=== PATIENT | female | born 1965 | race African-American/Black ===

== ENCOUNTER 2017-04-24 12:38 | Emergency (ER) | payer MEDICAID, MEDICARE ==
[~2017-04-24] VITALS: Ht 157.5 cm; Wt 73.0 kg
[~2017-04-24 12:38] MED LIST: ASPI-1160 PO; FERR325T23 PO; GLIP5TAB12 PO; METF-416 PO; OMEP20CA4 PO; SIMV10TA2 PO; TRAM50TA3 PO; ZOLP6.252 PO
[2017-04-24] MEDS ORDERED: SODIUM CHLORIDE 0.9% 1,000 ML IV ONE ×3 (12:52→18:06)
[2017-04-24] MEDS ORDERED: ASPIRIN 81MG TABLET PO ONE (13:00)
[2017-04-24 13:32] LABS: BASOPHILS % 0.7 % (0.0-2.0); EOSINOPHILS % 2.1 % (0.0-5.0); HEMATOCRIT. 40.3 % (36.0-48.0); HEMOGLOBIN. 12.5 g/dL (12.0-16.0); MEAN CORPUSCULAR HEMOGLOBIN 22.5 pg (28.0-32.0); MEAN CORPUSCULAR VOLUME 72.5 fL (81.0-99.0); MEAN PLATELET VOLUME 9.7 fl (7.4-10.4); MONOCYTES % 6.9 % (2.0-8.0); NEUTROPHILS % 70.3 % (40.0-76.0); PLATELET 273 x1000/uL (130-400); RED BLOOD CELL COUNT 5.55 mill/uL (4.2-5.4); RED CELL DISTRIBUTION WIDTH 14.6 % (11.6-14.6)
[2017-04-24 13:37] LABS: PARTIAL THROMBOPLASTIN TIME 26.5 sec (23.4-31.0); PROTHROMBIN TIME 10.5 sec (9.4-11.6)
[2017-04-24 14:33] LABS: CHLORIDE 96 mEq/L (98-107)
[2017-04-24 15:16] LABS: CLARITY URINE CLEAR (CLEAR); COLOR URINE YELLOW (YELLOW); KETONES URINE NEGATIVE (NEGATIVE); LEUKOCYTE ESTERASE URINE NEGATIVE (NEGATIVE); NITRITE URINE NEGATIVE (NEGATIVE); OCCULT BLOOD URINE NEGATIVE (NEGATIVE); PROTEIN URINE NEGATIVE (NEGATIVE); SPECIFIC GRAVITY URINE 1.035 (1.005-1.030); UROBILINOGEN URINE 0.2 E.U./dL (0.2-1.0)
[2017-04-24 15:33] LABS: *AMPHETAMINES SCREEN URINE NEGATIVE (NEGATIVE); *BARBITURATES SCREEN URINE NEGATIVE (NEGATIVE); *BENZODIAZEPINES SCREEN URINE NEGATIVE (NEGATIVE); *COCAINE SCREEN URINE NEGATIVE (NEGATIVE); CANNABINOID URINE SCREEN NEGATIVE (NEGATIVE); METHADONE URINE SCREEN NEGATIVE (NEGATIVE); OPIATES URINE SCREEN NEGATIVE (NEGATIVE); PHENCYCLIDINE URINE SCREEN NEGATIVE (NEGATIVE)
[2017-04-24 15:50] LABS: EOSINOPHILS % 2.5 % (0.0-5.0); HEMATOCRIT. 39.1 % (36.0-48.0); HEMOGLOBIN. 12.3 g/dL (12.0-16.0); LYMPHOCYTES % 28.7 % (20.0-50.0); MEAN CORPUSCULAR HEMOGLOBIN 22.4 pg (28.0-32.0); MEAN CORPUSCULAR VOLUME 71.1 fL (81.0-99.0); MEAN PLATELET VOLUME 9.5 fl (7.4-10.4); MONOCYTES % 7.1 % (2.0-8.0); NEUTROPHILS % 60.7 % (40.0-76.0); PLATELET 266 x1000/uL (130-400); RED CELL DISTRIBUTION WIDTH 14.3 % (11.6-14.6)
[2017-04-24 16:06] LABS: CHLORIDE 98 mEq/L (98-107)
[2017-04-24] MEDS ORDERED: INSULIN REGULAR (HUMULIN R) UD 100 UNITS/ML SYR IV ONE (18:15)
[2017-04-24] MEDS ORDERED: INSULIN REGULAR (HUMULIN R) 300UNITS/3ML IV SCH (18:21)
[2017-04-24 21:30] VITALS: BP 118/72
== END 2017-04-24 22:30 | disposition home or self-care (01) ==
LOC: ER 12:38
DX: B34.9 Viral infection, unspecified (principal); I10 Essential (primary) hypertension; E11.65 Type 2 diabetes mellitus with hyperglycemia; Z79.4 Long term (current) use of insulin; Z79.82 Long term (current) use of aspirin; Z98.890 Other specified postprocedural states
CPT/HCPCS: 36415; 71045; 80053; 80305; 81001; 82010; 82962; 83880; 84484; 85025; 85610; 85730; 87804; 93005; 96361; 96374; 99285; J1815; J7030

== ENCOUNTER 2018-03-18 16:45 | Emergency (ER) | payer MEDICARE ==
[~2018-03-18] VITALS: Ht 157.5 cm; Wt 72.0 kg
[2018-03-18] MEDS ORDERED: ASPIRIN 81MG TABLET PO ONE (18:30)
[2018-03-18] MEDS ORDERED: NITROGLYCERIN 0.4MG TABLET SL SL PRN (18:30)
[2018-03-18 18:45] LABS: BASOPHILS % 0.6 % (0.0-2.0); EOSINOPHILS % 4.5 % (0.0-5.0); HEMATOCRIT. 39.7 % (36.0-48.0); HEMOGLOBIN. 12.5 g/dL (12.0-16.0); LYMPHOCYTES % 32.2 % (20.0-50.0); MEAN CORPUSCULAR HEMOGLOBIN 22.7 pg (28.0-32.0); MONOCYTES % 6.9 % (2.0-8.0); NEUTROPHILS % 55.8 % (40.0-76.0); PLATELET 278 x1000/uL (130-400); RED BLOOD CELL COUNT 5.51 mill/uL (4.2-5.4); RED CELL DISTRIBUTION WIDTH 14.4 % (11.6-14.6)
[2018-03-18 18:51] LABS: CHLORIDE 103 mEq/L (98-107)
[2018-03-18 19:07] LABS: PARTIAL THROMBOPLASTIN TIME 27.2 sec (23.4-31.0); PROTHROMBIN TIME 9.7 sec (9.1-11.1)
[2018-03-18] MEDS ORDERED: KETOROLAC 30MG/ML VIAL IV ONE (22:45)
[2018-03-19 02:23] VITALS: BP 133/90
== END 2018-03-19 02:28 | disposition home or self-care (01) ==
LOC: ER 16:45
DX: R07.89 Other chest pain (principal); M79.672 Pain in left foot
CPT/HCPCS: 36415; 71045; 73630; 80053; 82962; 83880; 84484; 85025; 85610; 85730; 93005; 93970; 96374; 99284; J1885

== ENCOUNTER 2020-11-12 20:33 | Emergency (ER) | payer MEDICAID, OTHER ==
[~2020-11-12] VITALS: Ht 157.5 cm; Wt 64.0 kg
[~2020-11-12 20:33] MED LIST changes: +GABA-532 PO; +HYDR-4001 MT; +LANTUSUD SUBCUT; +LIP40 MT; +NORCO PO
[2020-11-12] MEDS ORDERED: KETOROLAC 30MG/ML VIAL IV ONE (23:15)
[2020-11-12 23:48] LABS: *AMPHETAMINES SCREEN URINE NEGATIVE (NEGATIVE); *BARBITURATES SCREEN URINE NEGATIVE (NEGATIVE); *BENZODIAZEPINES SCREEN URINE NEGATIVE (NEGATIVE); *COCAINE SCREEN URINE NEGATIVE (NEGATIVE)
[2020-11-12 23:48] LABS: BASOPHILS % 0.8 % (0.0-2.0); EOSINOPHILS % 1.7 % (0.0-5.0); HEMATOCRIT. 40.8 % (36.0-48.0); HEMOGLOBIN. 13.1 g/dL (12.0-16.0); LYMPHOCYTES % 36.8 % (20.0-50.0); MEAN CORPUSCULAR VOLUME 71.8 fL (81.0-99.0); MONOCYTES % 7.1 % (2.0-8.0); NEUTROPHILS % 53.6 % (40.0-76.0); PLATELET 278 x1000/uL (130-400); RED BLOOD CELL COUNT 5.69 mill/uL (4.2-5.4); RED CELL DISTRIBUTION WIDTH 13.4 % (11.6-14.6)
[2020-11-12 23:49] LABS: CANNABINOID URINE SCREEN NEGATIVE (NEGATIVE); METHADONE URINE SCREEN NEGATIVE (NEGATIVE); OPIATES URINE SCREEN NEGATIVE (NEGATIVE); PHENCYCLIDINE URINE SCREEN NEGATIVE (NEGATIVE)
[2020-11-12 23:55] LABS: CHLORIDE 100 mEq/L (98-107)
[2020-11-12 23:59] LABS: ETHANOL BLOOD < 10 mg/dL
[2020-11-13] MEDS ORDERED: INSULIN REGULAR (HUMULIN R) 300UNITS/3ML VIAL SUBCUT ONE (00:45)
[2020-11-13 03:10] VITALS: BP 140/82
== END 2020-11-13 03:22 | disposition home or self-care (01) ==
LOC: ER 21:09
DX: E11.40 Type 2 diabetes mellitus with diabetic neuropathy, unspecified (principal); E11.65 Type 2 diabetes mellitus with hyperglycemia; D64.9 Anemia, unspecified; Z98.890 Other specified postprocedural states; Z79.82 Long term (current) use of aspirin; Z79.899 Other long term (current) drug therapy
CPT/HCPCS: 36415; 71045; 80053; 80305; 80320; 82962; 83880; 84484; 85025; 93970; 96372; 96374; 99285; J1815; J1885; G0480

== ENCOUNTER 2022-02-13 14:06 | Inpatient (IN) | payer MEDICARE, MEDICAID ==
[~2022-02-13] VITALS: Ht 157.5 cm; Wt 67.1 kg
[~2022-02-13 14:06] MED LIST changes: +SIMV-341 PO; -SIMV10TA2 PO
[2022-02-13] MEDS ORDERED: IBUPROFEN 400MG TABLET PO ONE (20:45)
[2022-02-13 20:55] LABS: BASOPHILS % 1.2 % (0.0-2.0); EOSINOPHILS % 4.9 % (0.0-5.0); HEMATOCRIT. 39.6 % (36.0-48.0); HEMOGLOBIN. 12.5 g/dL (12.0-16.0); LYMPHOCYTES % 34.4 % (20.0-50.0); MEAN CORPUSCULAR VOLUME 72.6 fL (81.0-99.0); MEAN PLATELET VOLUME 8.7 fl (7.4-10.4); MONOCYTES % 6.9 % (2.0-8.0); NEUTROPHILS % 52.6 % (40.0-76.0); PLATELET 283 x1000/uL (130-400); RED BLOOD CELL COUNT 5.46 mill/uL (4.2-5.4); RED CELL DISTRIBUTION WIDTH 14.2 % (11.6-14.6)
[2022-02-13 20:57] LABS: CHLORIDE 105 mEq/L (98-107)
[2022-02-13] MEDS ORDERED: ASPIRIN 325MG EC TABLET PO ONE (22:30)
[2022-02-13] MEDS ORDERED: ONDANSETRON HCL 4MG/2ML INJ IV STA (23:24)
[2022-02-13] MEDS ORDERED: MORPHINE SULFATE 4 MG/ML CPJ (NOT FOR IM USE) IV STA (23:24)
[2022-02-14] VITALS (7 sets, daily range): BP systolic 108–157; BP diastolic 66–93
[2022-02-14] MEDS ORDERED: DEXTROSE 50% WATER 50ML SYRINGE IV PRN (04:15)
[2022-02-14] MEDS ORDERED: ZOLPIDEM TARTRATE 5MG TABLET PO PRN (04:15)
[2022-02-14] MEDS ORDERED: NALOXONE HCL 0.4MG/ML VIAL IV PRN (04:30)
[2022-02-14] MEDS: HYDROCODONE/ACETAMINOPHEN 10/325MG TABLET PO PRN ×3 (04:30→15:59)
[2022-02-14] MEDS: BLOOD SUGAR DIAGNOSTIC STRIP TEST SCH ×4 (06:25→21:00)
[2022-02-14] MEDS: INSULIN LISPRO 100 UNITS/ML SUBCUT SCH ×4 (07:50→21:00)
[2022-02-14] MEDS: FERROUS SULFATE 325MG TABLET PO SCH ×2 (10:29→17:50)
[2022-02-14] MEDS: ATORVASTATIN CALCIUM 40MG TABLET PO SCH (10:29)
[2022-02-14] MEDS: GABAPENTIN 300MG CAPSULE PO SCH ×3 (10:30→17:46)
[2022-02-14] MEDS: ASPIRIN 81MG TABLET PO SCH (10:30)
[2022-02-14] MEDS: METFORMIN HCL 500MG TABLET PO SCH ×2 (10:30→17:00)
[2022-02-14] MEDS: INSULIN GLARGINE 100 UNITS/ML SUBCUT SCH ×2 (10:31→17:48)
[2022-02-14] MEDS: ENOXAPARIN 40MG/0.4ML SYR SUBCUT SCH (10:34)
[2022-02-14 11:29] LABS: HEMOGLOBIN 12.1 g/dL (12.0-16.0); MEAN CORPUSCULAR HEMOGLOBIN 22.5 pg (28.0-32.0); MEAN CORPUSCULAR VOLUME 72.4 fL (81.0-99.0); PLATELET 270 x1000/uL (130-400); RED BLOOD CELL COUNT 5.38 mill/uL (4.2-5.4); RED CELL DISTRIBUTION WIDTH 14.4 % (11.6-14.6)
[2022-02-14 12:34] LABS: CHLORIDE 106 mEq/L (98-107)
[2022-02-14 12:53] LABS: HDL CHOLESTEROL 41 mg/dL (40-59); LDL CHOLESTEROL 87 mg/dL (5-100)
[2022-02-15] VITALS: BP 107/63
[2022-02-15] MEDS: HYDROCODONE/ACETAMINOPHEN 10/325MG TABLET PO PRN ×2 (02:00→10:43)
[2022-02-15] MEDS ORDERED: *PATIENT'S OWN MEDICATION STORAGE XX SCH (05:15)
[2022-02-15 06:41] VITALS: BP 102/58
[2022-02-15] MEDS: INSULIN LISPRO 100 UNITS/ML SUBCUT SCH ×4 (07:50→20:31)
[2022-02-15 08:00] VITALS: BP 133/81
[2022-02-15] MEDS: BLOOD SUGAR DIAGNOSTIC STRIP TEST SCH ×4 (08:10→20:31)
[2022-02-15] MEDS: METFORMIN HCL 500MG TABLET PO SCH ×2 (09:00→17:00)
[2022-02-15] MEDS: ATORVASTATIN CALCIUM 40MG TABLET PO SCH ×2 (09:00→10:37)
[2022-02-15] MEDS: GABAPENTIN 300MG CAPSULE PO SCH ×3 (10:36→18:44)
[2022-02-15] MEDS: ENOXAPARIN 40MG/0.4ML SYR SUBCUT SCH (10:37)
[2022-02-15] MEDS: FERROUS SULFATE 325MG TABLET PO SCH ×2 (10:37→18:44)
[2022-02-15] MEDS: ASPIRIN 81MG TABLET PO SCH (10:37)
[2022-02-15] MEDS: INSULIN GLARGINE 100 UNITS/ML SUBCUT SCH ×2 (10:40→18:49)
[2022-02-15 12:00] VITALS: BP 123/58
[2022-02-15] MEDS ORDERED: SUMATRIPTAN SUCCINATE 6MG/0.5ML VIAL SUBCUT NR (13:15)
[2022-02-15 16:00] VITALS: BP 118/68
[2022-02-15 20:00] VITALS: BP 115/65
[2022-02-16] VITALS: BP 132/78
[2022-02-16 04:00] VITALS: BP 122/64
[2022-02-16] MEDS: INSULIN LISPRO 100 UNITS/ML SUBCUT SCH ×2 (06:40→12:09)
[2022-02-16] MEDS: BLOOD SUGAR DIAGNOSTIC STRIP TEST SCH ×2 (06:40→12:09)
[2022-02-16] MEDS: HYDROCODONE/ACETAMINOPHEN 10/325MG TABLET PO PRN ×2 (06:53)
[2022-02-16 08:00] VITALS: BP 114/77
[2022-02-16] MEDS: METFORMIN HCL 500MG TABLET PO SCH (09:00)
[2022-02-16] MEDS: ASPIRIN 81MG TABLET PO SCH (10:01)
[2022-02-16] MEDS: GABAPENTIN 300MG CAPSULE PO SCH (10:01)
[2022-02-16] MEDS: FERROUS SULFATE 325MG TABLET PO SCH (10:02)
[2022-02-16] MEDS: ENOXAPARIN 40MG/0.4ML SYR SUBCUT SCH (10:05)
[2022-02-16] MEDS: INSULIN GLARGINE 100 UNITS/ML SUBCUT SCH (10:17)
[2022-02-16 11:06] VITALS: BP 114/77
[2022-02-16] MEDS ORDERED: SUMATRIPTAN SUCCINATE 6MG/0.5ML VIAL SUBCUT NR (12:00)
== END 2022-02-16 11:40 | DRG 74 ==
LOC: ER 14:06 → MICUSO 23:15 → ENRESERV 02-14 00:40 → 6WST 02-14 02:04
PROVIDERS: ADMIT Internal Medicine; ATTEND Internal Medicine
DX: G90.8 Other disorders of autonomic nervous system (principal); E10.9 Type 1 diabetes mellitus without complications; M48.02 Spinal stenosis, cervical region; R29.6 Repeated falls; G89.29 Other chronic pain; I25.2 Old myocardial infarction; Z79.4 Long term (current) use of insulin; Z82.49 Family history of ischemic heart disease and other diseases of the circulatory system
CPT/HCPCS: 36415; 70551; 71045; 72141; 72148; 73030; 73060; 80048; 80053; 80061; 82962; 83036; 83880; 84484; 85025; 85027; 93005; 97162; 97166; 99285; J1650; J1815; J2270; J2405; J3030

== ENCOUNTER 2022-03-06 01:51 | Emergency (ER) | payer MEDICARE, MEDICAID ==
[~2022-03-06] VITALS: Ht 167.6 cm; Wt 75.0 kg
[2022-03-06] MEDS ORDERED: ASPIRIN 81MG TABLET PO ONE (03:30)
[2022-03-06 04:40] LABS: HEMATOCRIT. 37.9 % (36.0-48.0); HEMOGLOBIN. 11.9 g/dL (12.0-16.0); MEAN CORPUSCULAR HEMOGLOBIN 22.5 pg (28.0-32.0); MEAN CORPUSCULAR VOLUME 71.4 fL (81.0-99.0); MEAN PLATELET VOLUME 8.6 fl (7.4-10.4); PLATELET 264 x1000/uL (130-400)
[2022-03-06 04:43] LABS: CHLORIDE 107 mEq/L (98-107)
[2022-03-06 04:59] LABS: ETHANOL BLOOD < 10 mg/dL
[2022-03-06] MEDS ORDERED: SODIUM CHLORIDE 0.9% 1,000 ML IV ONE (06:15)
[2022-03-06] MEDS ORDERED: ONDANSETRON HCL 4MG/2ML INJ IV ONE (06:15)
[2022-03-06 08:08] LABS: PLATELET ESTIMATE NORMAL
[2022-03-06] MEDS ORDERED: ONDANSETRON HCL 4MG/2ML INJ IV NR (09:15)
[2022-03-06] MEDS ORDERED: ACETAMINOPHEN 325MG TABLET PO ONE (11:30)
[2022-03-06] MEDS ORDERED: KETOROLAC 30MG/ML VIAL IV ONE (11:30)
[2022-03-06 11:45] VITALS: BP 149/77
[2022-03-06] MEDS ORDERED: CEFD300C3 MT (12:01)
[2022-03-06] MEDS ORDERED: METR-167 MT (12:03)
== END 2022-03-06 12:41 | disposition home or self-care (01) ==
LOC: ER 01:51
DX: K52.9 Noninfective gastroenteritis and colitis, unspecified (principal); I10 Essential (primary) hypertension; E11.9 Type 2 diabetes mellitus without complications; Z79.82 Long term (current) use of aspirin; Z79.899 Other long term (current) drug therapy
CPT/HCPCS: 36415; 71045; 74176; 80053; 80320; 83690; 83880; 84484; 85025; 93005; 96361; 96374; 96375; 99285; J1885; J2405; J7030; G0480